=== PATIENT | female | born 1945 | race Caucasian/White ===

== ENCOUNTER 2018-05-15 13:35 | Observation (INO) | payer OTHER ==
[2018-05-15] MEDS ORDERED: NS 1,000 ML IV ONE (13:56)
--- NOTE | 2018-05-15 13:56 | EDPHY ---
H & P Stated Complaint: irregular heart beat since ~10:30am, weakness, L arm tingling resolved Time Seen by Provider: 05/15/18 13:56 HPI/ROS: HPI CHIEF COMPLAINT: Irregular heartbeat, generalized weakness, lightheadedness HISTORY OF PRESENT ILLNESS: Patient is a 73-year-old female she arrived to the emergency room by private vehicle with palpitations, lightheadedness, generalized weakness, right arm numbness and tingling that is now resolved. Patient states around 10 30 this morning she was standing there cooking and developed lightheadedness she checked her pulse and felt a irregular pulse. Denies chest pain or chest pressure denies shortness of breath. Clune very lightheaded felt like she was going to pass out. This went on for period of time, due to the symptoms she decided come the emergency room. Since arriving in emergency room she denies any complaints at this time she does states she feels tired. Patient denies any history of cardiovascular disease except history of Takosubo cardiomyopathy Past Medical History: Significant medical history for hyperlipidemia, remote history of DVT, TakoSubo cardiomyopathy Past Surgical History: No recent surgery Social History: Denies drugs alcohol tobacco. Resides in [place] part-time as well as [place] as well [facility]. Family History: ROS REVIEW OF SYSTEMS: 10 Systems were reviewed and negative with the exception of the elements mentioned in the history of present illness. Exam Constitutional appears well nontoxic triage nursing summary reviewed, vital signs reviewed, awake/alert. Eyes normal conjunctivae and sclera, EOMI, PERRLA. HENT normal inspection, atraumatic, moist mucus membranes, no epistaxis, neck supple/ no meningismus, no raccoon eyes. Respiratory clear to auscultation bilaterally, normal breath sounds, no respiratory distress, no wheezing. Cardiovascular rate normal, regular rhythm, no murmur, no edema, distal pulses normal. Gastrointestinal soft, non-tender, no rebound, no guarding, normal bowel sounds, no distension, no pulsatile mass. Genitourinary no CVA tenderness. Musculoskeletal no midline vertebral tenderness, full range of motion, no calf swelling, no tenderness of extremities, no meningismus, good pulses, neurovascularly intact. Skin pink, warm, & dry, no rash, skin atraumatic. Neurologic awake, alert and oriented x 3, AAOx3, moves all 4 extremities equally, motor intact, sensory intact, CN II-XII intact, normal cerebellar, normal vision, normal speech. Psychiatric normal mood/affect. Heme/Lymph/Immune no lymphadenopathy. Differential Diagnosis: Differential diagnosis includes but is not limited to: ACS, atypical chest pain, pneumothorax, pneumonia, pulmonary embolism, aortic dissection, congestive heart failure, tumor, musculoskeletal pain, esophageal pain, GERD, peptic ulcer disease, pancreatitis Medical Decision Making: Plan for this patient IV establishment IV fluid bolus , EKG, basic blood work, troponin, chest x-ray, and re-evaluate. Re-evaluation: EKG interpretation by me on record in [facility] system. Impression time of EKG 1354, sinus rhythm rate of 58, no signs of acute ischemia. 1735: Patient re-evaluated this time resting comfortably. Her workup here in emergency for lightheadedness, feeling she is going to pass out, palpitations rather unremarkable here in the ER. She has a nonischemic EKG. Troponin noted to be negative. Chest x-ray reviewed. Long discussion with the patient given her symptoms of lightheadedness, feeling she was going to pass out, palpitations, plan will be for admission overnight for telemetry observation. She agrees for this and prefer this plan. I did give the patient the option of repeat EKG repeat troponin and going home with Cardiology follow-up with Holter monitor however she she states she is fine staying overnight for further observation. I have consult the hospitalist service Dr. Harmon who will admit. Source: Patient - Medical/Surgical History Hx Asthma: No Hx Chronic Respiratory Disease: No Hx Diabetes: No Hx Cardiac Disease: No Hx Renal Disease: No Hx Cirrhosis: No Hx Alcoholism: No Hx HIV/AIDS: No Hx Splenectomy or Spleen Trauma: No Other PMH: hyperlipidemia - Social History Smoking Status: Never smoked Constitutional: Initial Vital Signs Temperature (C) 36.5 C 05/15/18 13:39 Heart Rate 65 05/15/18 13:39 Respiratory Rate 18 05/15/18 13:39 Blood Pressure 145/90 H 05/15/18 13:39 O2 Sat (%) 95 05/15/18 13:39 O2 Delivery Mode Room Air Allergies/Adverse Reactions: clarithromycin [From Biaxin] Allergy (Verified 05/15/18 13:39) Home Medications: Medication Instructions Recorded Atorvastatin Calcium 10 mg PO HS 05/15/18 Biotin [BIOTIN] 5 mg PO DAILY 05/15/18 Ergocalciferol (Vitamin D2) 1,200 unit PO DAILY 05/15/18 [Vitamin D2] Lactobacillus Rhamnosus GG 1 each PO DAILY 05/15/18 [CULTURELLE] Multivitamins [Multivitamin (*)] 1 each PO DAILY 05/15/18 Medical Decision Making - Diagnostics Imaging Results: Imaging Impressions Chest X-Ray 05/15/18 13:56 Impression: Chest negative for acute abnormality; query chronic airways disease. - Data Points Laboratory Results: Laboratory Results 05/15/18 14:00 05/15/18 14:00 05/15/18 05/15/18 05/15/18 14:13 14:00 14:00 WBC RBC Hgb Hct MCV MCH MCHC RDW Plt Count MPV Neut % (Auto) Lymph % (Auto) [place] % (Auto) Eos % (Auto) Baso % (Auto) Nucleat RBC Rel Count Absolute Neuts (auto) Absolute Lymphs (auto) Absolute Monos (auto) Absolute Eos (auto) Absolute Basos (auto) Absolute Nucleated RBC Immature Gran % Immature Gran # PT INR APTT Sodium 138 mEq/L mEq/L (135-145) Potassium 4.1 mEq/L mEq/L (3.5-5.2) Chloride 108 mEq/L mEq/L (97-110) Carbon Dioxide 22 mEq/l mEq/l (22-31) Anion Gap 8 mEq/L mEq/L (6-14) BUN 17 mg/dL mg/dL (7-23) Creatinine 0.9 mg/dL mg/dL (0.6-1.0) Estimated GFR > 60 Glucose 94 mg/dL mg/dL (70-100) Calcium 10.2 mg/dL mg/dL (8.5-10.4) Magnesium 1.9 mg/dL mg/dL (1.6-2.3) POC Troponin I 0.01 ng/mL ng/mL (0.00-0.08) NT-Pro-B Natriuret Pep 17 pg/mL pg/mL (0-125) TSH < 0.015 uIU/mL L uIU/mL (0.465-4.680) 05/15/18 05/15/18 14:00 14:00 WBC 6.11 10^3/uL 10^3/uL (3.80-9.50) RBC 4.60 10^6/uL 10^6/uL (4.18-5.33) Hgb 14.1 g/dL g/dL (12.6-16.3) Hct 40.9 % % (38.0-47.0) MCV 88.9 fL fL (81.5-99.8) MCH 30.7 pg pg (27.9-34.1) MCHC 34.5 g/dL g/dL (32.4-36.7) RDW 13.8 % % (11.5-15.2) Plt Count 220 10^3/uL 10^3/uL (150-400) MPV 9.8 fL fL (8.7-11.7) Neut % (Auto) 57.4 % % (39.3-74.2) Lymph % (Auto) 33.1 % % (15.0-45.0) [place] % (Auto) 7.4 % % (4.5-13.0) Eos % (Auto) 1.1 % % (0.6-7.6) Baso % (Auto) 0.8 % % (0.3-1.7) Nucleat RBC Rel Count 0.0 % % (0.0-0.2) Absolute Neuts (auto) 3.51 10^3/uL 10^3/uL (1.70-6.50) Absolute Lymphs (auto) 2.02 10^3/uL 10^3/uL (1.00-3.00) Absolute Monos (auto) 0.45 10^3/uL 10^3/uL (0.30-0.80) Absolute Eos (auto) 0.07 10^3/uL 10^3/uL (0.03-0.40) Absolute Basos (auto) 0.05 10^3/uL 10^3/uL (0.02-0.10) Absolute Nucleated RBC 0.00 10^3/uL 10^3/uL (0-0.01) Immature Gran % 0.2 % % (0.0-1.1) Immature Gran # 0.01 10^3/uL 10^3/uL (0.00-0.10) PT 13.1 SEC SEC (12.0-15.0) INR 0.97 (0.83-1.16) APTT 24.3 SEC SEC (23.0-38.0) Sodium Potassium Chloride Carbon Dioxide Anion Gap BUN Creatinine Estimated GFR Glucose Calcium Magnesium POC Troponin I NT-Pro-B Natriuret Pep TSH Medications Given: Atorvastatin Calcium (Lipitor) 10 mg PO HS BRITTANY Stop: 11/11/18 20:59 Last Admin: 05/15/18 20:58 Dose: 10 mg Discontinued Medications Sodium Chloride (Ns) 1,000 mls @ 0 mls/hr IV EDNOW ONE; Wide Open PRN Reason: Protocol Stop: 05/15/18 13:57 Last Admin: 05/15/18 14:25 Dose: 1,000 mls Point of Care Test Results: Chemistry 05/15/18 14:13 POC Troponin I 0.01 ng/mL ng/mL (0.00-0.08) Departure - Departure Disposition: [facility] Inpatient Acute Clinical Impression: Palpitations Condition: Fair
[2018-05-15 14:15] LABS: PLATELET COUNT 220 10^3/uL (150-400)
[2018-05-15 14:23] LABS: INR 0.97 (0.83-1.16); PROTIME(PATIENT) 13.1 SEC (12.0-15.0)
[2018-05-15] MEDS ORDERED: ONDANSETRON 4 MG/2 ML VIAL IVP PRN (17:35)
[2018-05-15] MEDS ORDERED: ACETAMINOPHEN 325 MG TAB PO PRN (17:35)
[2018-05-15] MEDS ORDERED: ONDANSETRON DISINTEGRATING 4 MG TAB PO PRN (17:35)
--- NOTE | 2018-05-15 19:52 | CPEKG ---
Test Reason : OPEN Blood Pressure : / mmHG Vent. Rate : 058 BPM Atrial Rate : 117 BPM P-R Int : 173 ms QRS Dur : 097 ms QT Int : 437 ms P-R-T Axes : 054 063 030 degrees QTc Int : 430 ms Sinus rhythm Atrial premature complexes Confirmed by Maxwell Somers ([id number]) on 05/15/2018 7:51:29 PM Referred By: Maxwell Somers Confirmed By:Maxwell Somers
--- NOTE | 2018-05-15 20:19 | GHP ---
[f rep st] HISTORY AND PHYSICAL DATE OF ADMISSION: 05/15/2018 CHIEF COMPLAINT: Weakness, right arm tingling. HISTORY OF PRESENT ILLNESS: A pleasant 73-year-old female with hyperlipidemia and TIA who arrived by private vehicle with palpitations, lightheadedness, generalized weakness, and right arm numbness/tingling. At 10 o'clock this morning, she was standing in kitchen cooking and felt lightheadedness. Checked her pulse and felt to be irregular. Was very faint, so layed down to avoid passing out. No LOC. At 1 p.m., symptoms persisted, so she took an aspirin and called her nurse in [place], who recommended she come to the ER. No slurred speech or focal weakness. Feels fine now. Lives half the year in [place] and half here in [place]. Arrived here May 01. Since that time, has had at least 2 similar episodes with fatigue, right hand tingling, weakness. Is very active with skiing, hiking. Hiked yesterday with no chest pain. c/o SOB with stairs which has progressed over several months. No lower extremity swelling, PND, or pillow orthopnea. Drinks 3 glasses of wine a night and 2 cups coffee daily. Has normal p.o. intake. No fevers, chills, or sweats, or other infectious symptoms. REVIEW OF SYSTEMS: I completed a 10-point review of systems and noted except HPI. PAST MEDICAL HISTORY: 5-6 "weak episodes" in the last 6 months. Hyperlipidemia. Asymptomatic migraines, TIA. PAST SURGICAL HISTORY: Peritonitis with resulting bowel resection. Ovary and fallopian tube removal. Right nephrectomy. SOCIAL HISTORY: Spends half the time here, half in [place]. She is here with her son. 2-3 glasses of wine nightly. No tobacco or illicits. FAMILY HISTORY: Mother with heart disease. HOME MEDICATIONS: Lactobacillus, multivitamin, vitamin D2, atorvastatin 10 mg q.h.s. ALLERGIES: Clarithromycin. PHYSICAL EXAMINATION: VITAL SIGNS: Temperature 36.4. Blood pressure 174/109, now 154/84. Heart rate is in the 50s and 60s. Respirations 12. 98% on room air. GENERAL: Sitting up in bed, no acute distress. Does appear fatigued. HEENT: Mildly dry mucous membranes. CV: Jared, regular. No murmurs, gallops, or rubs. LUNGS: Clear bilaterally. ABDOMEN: Soft, nontender, nondistended. Positive bowel sounds. : No Rg. MUSCULOSKELETAL: 5/5 upper and lower extremity strength. NEURO: 2-12 intact. Normal sensation to touch throughout. Normal proprioception. No pronator drift. PSYCH: Alert and oriented x3. LABS: WBC 6, hemoglobin 14, hematocrit 40, platelets 220. Coags within normal. Sodium 138, potassium 4.1, chloride 108, carbon dioxide 22, creatinine 0.9, glucose 94, magnesium 1.9. Troponin 0.01. BNP 17. TSH is pending. EKG was personally reviewed by me. Bradycardic, first-degree heart block. ST flattening in III and aVF; no old to compare. PAC. Chest x-ray personally reviewed by me: No effusion or opacity. ASSESSMENT AND PLAN: 1. Weakness: c/o of vague symptoms. Given right arm tingling, numbness , will eval for TIA with CT, echo, telemetry. PT/OT/SPL. Frequent neuro checks. Echocardiogram. EKG shows premature atrial contractions. Electrolytes within normal. Initial trop negative 2. Palpitations: EKG with premature atrial contractions. Electrolytes within normal. TSH pending. Endorses mild dyspnea with exertion. Echocardiogram to evaluate for valvular heart disease. 3. Hyperlipidemia: Statin. Diet regular. 4. Deep vein thrombosis prophylaxis: SCDs. DISPOSITION: Observation admission for CT head, echocardiogram, and telemetry. /[id number]/MODL MTDD
[2018-05-15] MEDS ORDERED: ATORVASTATIN CALCIUM 10 MG TAB PO SCH (21:00)
[2018-05-16] MEDS ORDERED: IOPAMIDOL (ISOVUE 370) 100 ML BTL IV ONE (08:52)
[2018-05-16] MEDS ORDERED: ASPIRIN 81 MG CHEWABLE TAB PO SCH (09:00)
[2018-05-16] MEDS ORDERED: LACTOBACILLUS RHAMNOSUS GG PO SCH (09:00)
[2018-05-16] MEDS ORDERED: ENOXAPARIN 40 MG/0.4 ML SYR SC SCH (09:00)
[2018-05-16] MEDS ORDERED: ERGOCALCIFEROL PO SCH (09:00)
[2018-05-16] MEDS ORDERED: MULTIVITAMINS 1 EACH TAB PO SCH (09:00)
[2018-05-16] MEDS ORDERED: Biotin [Biotin] 5 MG PO SCH (09:00)
--- NOTE | 2018-05-16 11:06 | GCON ---
[f rep st] CONSULTATION NEUROLOGIC CONSULTATION REFERRING PHYSICIAN: China Harmon MD HISTORY: The patient is a 73-year-old woman whom I am asked to see in neurologic consultation regard ing some episodes in which she feels lightheaded and might have generalized weakness and relative rig ht arm numbness. It is hard for her to say exactly how many episodes have occurred, but she would es timate perhaps 6 or 8 episodes in the last 6 or 8 months. They are fairly stereotyped in which she w ill have a global feeling, without any clear precipitating cause, of feeling weak but always perceive s relatively more numbness in the right arm than anywhere else and says it is not a tingling sensatio n, and not necessarily weak, but she definitely does not feel that it is normal at that time. She sp ecifically says it does not seem to affect the right leg or the right face, nor associated with mejia e in vision, speech, chewing or swallowing. It is not associated with headache. Often, she has palp itations, and typically, the events resolve when she sits down and rests, and within a matter of aaron eliceo, feels back to normal. Yesterday, however, the episode seemed to persist a bit longer. This led to a telephone call back to [place], where she also lives, and was advised through a physician and a nurse that she should go to the emergency department for assessment. She came to the emergency ro om for acute evaluation. Nothing specifically was identified in terms of routine labs or EKG, and he ad CT was also performed. This did not show any evidence of a mass lesion or hemorrhage or stroke. There was simply age-related atrophy. I have directly reviewed that report as well. In any case, ilia navarro has come to the cardiac unit for monitoring and has not had a recurrent episode since being [facility]. Perhaps a few months ago, she had a heart scan in [place], and it sounds as if she was told she had an elevated calcium score and was advised to go on a statin. She is not currently taking da nawaf aspirin. She does feel back to normal, now, and she thinks the total duration of the episode, yesterday, was p erhaps from 10:00 or 10:30 AM until 11:30 or noon. She also says that she has had several years of relative awareness of pain in the right shoulder and neck region, but it tends to occur when she elevates the arm, and she feels pain in the deltoid and u pper arm region, sometimes toward the neck, but does not describe a classic radicular pain shooting f rom the neck into the arm. She does not typically experience left arm numbness. REVIEW OF SYSTEMS: Otherwise, 10-point review of systems is completed and unremarkable. PAST MEDICAL HISTORY: There is a remote history of DVT. She has apparently been told of having tako tsubo cardiomyopathy. SOCIAL HISTORY: She is retired but remains fairly active. She spends part of her time in [place] as well as this area, and sometimes, in [facility] where she had visited an aunt who is recently d eceased from Alzheimer's. She has children in the area. She is not a smoker. According to the admission history and physical, she has 2-3 glasses of wine in the evening. ALLERGIES: Allergy to clarithromycin. MEDICATIONS: Currently, she is on Zofran, and prior to coming in, she was on atorvastatin 10 mg joselo y. Vitamin D, Biotin, multivitamin. PHYSICAL EXAM: VITAL SIGNS: The blood pressure is 121/64, pulse of 52, respirations 12, temperature 36.8. GENERAL: She is well developed, lying in the bed in no acute distress. NECK: Supple with n o bruits or masses. No supraclavicular bruits. She has a little bit of pain around the right elbow and upper arm when she lifts the arm or I move it up. There are no palpable masses or particular sen sitivity to touch in the region. CARDIAC: Regular rate and rhythm. No murmur. NEUROLOGIC: She is alert and attentive with clear, fluent speech and normal cognition. Pupils are 2 mm and reactive. Extraocular movements are intact. Normal facial sensation and strength. Hearing is preserved. The motor exam reveals normal muscle bulk and tone with 5/5 strength except for some pain when she resist s in the right arm at the proximal region. She says there is a little perception of stiffness in the right hand compared to the left but nothing else more specific. Sensation is symmetric for temperat ure and light touch in the extremities, and no ataxia on [id number]. Reflexes are 1+ and symmetr ic. No Babinski sign. LABORATORY STUDIES: Normal white count, INR and unremarkable serum chemistries with an LDL cholester ol at 66. IMPRESSION: Total unit time of 55 minutes. The patient is having some rather stereotyped episodes, over the last 8 months, for which I do not have a definitive explanation. It is concerning that she has had relative involvement of the right arm in terms of a numb perception, but it is not clearly a transient ischemic attack. This is a differential consideration, however. It begins more as a gener alized reaction where she feels either palpitations or other nonspecific global weakness that then la sts only a few minutes and resolves. On one occasion, she had diffuse sweating and broke out into a severe generalized sweat suggesting a generalized sympathetic surge, but again, of unknown source. I t is possible, mechanistically, for her to have cardiac arrhythmia followed by relative hypoperfusion , and stenotic vessels could lead to neurologic symptoms that have some focality. Therefore, my plan will be to obtain CT angiogram of the head and neck. I am recommending daily aspirin. I would cont inue the statin for now. I agree with the echocardiogram. She should have cardiac monitoring until such time that one of these episodes is captured. This does not need to be inpatient, but she can espino ve a 30-day event monitor, or perhaps a longer monitor if necessary, to try and be sure we capture th e source of these feelings of palpitations and events and make sure they are not linked to a cardiac rhythm disturbance. She is comfortable with this plan. I told her she can follow up with me as an o utpatient if she chooses. She does travel between [facility] and [place] fairly commonly, and she is als o seeking out getting more medical care, perhaps in this area, as well. With a history of a positive cardiac calcium score, that can be followed up through her cooler deliverer and regular physician but fu rther suggests the importance of looking at the cerebral vasculature as well, which we will do. /[id number]/MODL
[2018-05-16 15:07] VITALS: BP 129/71
--- NOTE | 2018-05-16 16:07 | ASMTLACE ---
LACE Length of stay for Answers: Less than 1 day current admission Acuity / Level of Answers: No Care: Did the patient have an inpatient admission? Comorbidities - select Answers: Any tumor (including all that apply lymphoma or leukemia) Other Notes: HLD; DVT # of Emergency department Answers: 1-2 visits in the last 6 months Score: 4 Date Signed: 05/16/2018 04:06 PM Electronically Signed By:Amisha Bliss RN
--- NOTE | 2018-05-16 16:09 | ASMTDCNOTE ---
Case Management Discharge Discharge Order Complete? Answers: Yes Patient to Obtain Answers: Independently Medications Transportation Arranged Answers: Family/Friends Discharge Comments Notes: 05/16/2018 Case Management Note pt resides in [place]. PRCP is Dr. Zambrano at [facility] [phone]. Pt has an appointment with Dr. Zambrano on 05/25/2017. Pt is visiting her son in [place] with plans to return to [place] on . Case Management d/c poc: independent with follow up as directed. Date Signed: 05/16/2018 04:09 PM Electronically Signed By:Amisha Bliss RN
--- NOTE | 2018-05-16 16:10 | ASDISCHSUM ---
Discharge Information Plan Status:Home with No Needs Medically Cleared to Leave:05/15/2018 Discharge Date:05/15/2018 CM D/C Disposition:Home, Routine, Self-Care ADT D/C Disposition:Home, Routine, Self-Care Projected Discharge Date:05/15/2018 Transportation at D/C:Self Discharge Delay Reason: Follow-Up Date:05/15/2018 Discharge Slot: Final Diagnosis: Placement Information Patient Contact Information Contact Name:HANNAH Relationship:Josh Address: Work Phone: City: [facility] Phone: State/[employer] Code: Email: Financial Information Financial Class:Medicare Primary Plan Desc:MEDICARE OUTPATIENT Primary Plan Number:[id number] Secondary Plan Desc:[facility] PLANS Secondary Plan Number:[id number] Assessment Information LACE LACE Length of stay for Answers: Less than 1 day current admission Acuity / Level of Answers: No Care: Did the patient have an inpatient admission? Comorbidities - select Answers: Any tumor (including all that apply lymphoma or leukemia) Other Notes: HLD; DVT # of Emergency department Answers: 1-2 visits in the last 6 months Score: 4 Date Signed: 05/16/2018 04:06 PM Electronically Signed By:Amisha Bliss RN Case Management Discharge Plan Note Case Management Discharge Discharge Order Complete? Answers: Yes Patient to Obtain Answers: Independently Medications Transportation Arranged Answers: Family/Friends Discharge Comments Notes: 05/16/2018 Case Management Note [place]. BEULAHP is Dr. Zambrano at [facility] [phone]. Pt has an appointment with Dr. Zambrano on 05/25/2017. Pt is visiting her son in [place] with plans to return to [place] on . Case Management d/c poc: independent with follow up as directed. Date Signed: 05/16/2018 04:09 PM Electronically Signed By:Amisha Bliss RN Intervention Information Intervention Type:*WONG-Signed Date of Service:05/16/2018 10:29 AM Patient Type:Observation Staff Member:Sophia Aiken Hours: Discipline: Severity: Comment:
--- NOTE | 2018-05-16 16:32 | ECHO ---
[email or web address] [address] [address] Main: [phone] Fax: Transthoracic Echocardiogram Name: JAYLENE MADDOX MR#: [id number] Study Date: 05/16/2018 Study Time: 09:43 AM Date of : 1945 Age: 73 year(s) Height: 165.1 cm (65 in.) Weight: 53.98 kg (119 lb.) BSA: 1.59 m2 Gender: Female Examination: Echo Indication: Cardiac: dyspnea, Near Syncope Image Quality: Contrast: Requested by: China Harmon BP: 121 mmHg/64 mmHg Heart Rate: Rhythm: Normal sinus rhythm Indication: Cardiac: dyspnea, Near Syncope Procedure Staff Rn Internship: Juan Jose Damon RDCS Reading Physician: Rowdy Stephenson MD Requesting Provider: Conclusions: Normal size left ventricle. EF is 76 %. No regional wall motion abnormality. Normal diastolic LV function. Normal appearing valvular structures. Trivial mitral valve regurgitation. Trivial tricuspid valve regurgitation. The pulmonary artery pressure is normal. Small pericardial effusion. No echocardiographic evidence of hemodynamic compromise. No priuor study for comparison. Measurements: Chambers Valvular Assessment AV/MV Valvular Assessment TV/PV Normal Normal Normal Name Value Range Name Value Range Name Value Range Ao Melinda (MM): 2.9 cm (2.2 cm-3.7 AV Vmax: 1.26 m/s (1 m/s-1.7 TR Vmax: 2.36 mm/s ( - ) cm) m/s) TR PGmax: 22 mmHg ( - ) IVSd (2D): 0.8 cm (0.6 cm-1.1 AV maxP mmHg ( - ) syst. PAP: 27 mmHg ( - ) cm) LVOT Vmax: 1.11 m/s (0.7 m/s-1.1 PV Vmax: 0.77 m/s (0.6 m/s-0.9 LVDd (2D): 4.3 cm (3.9 cm-5.3 m/s) m/s) cm) MV E Vmax: 0.71 m/s ( - ) PV PGmax: 2 mmHg ( - ) LVDs (2D): 2.4 cm (2.1 cm-4 MV A Vmax: 0.49 m/s ( - ) cm) MV E/A: 1.45 ( - ) LVPWd (2D): 0.9 cm ( - ) LVEF (2D): 76 (>=54 %) Continued Measurements: Chambers Valvular Assessment AV/MV Valvular Assessment TV/PV Patient: JAYLENE MADDOX Study Date: 05/16/2018 Page 1 of 2 09:43 AM Name Value Name Value Name Value LADs: 2.6 cm MV E' Septal: 0.08 m/s CVP (est.): 5 mmHg LADs Lon.2 cm MV E/E' Septal: 9.10 LA Area: 12.1 cm2 MV E/E' Lateral: 6.10 LA Volume: 29 ml LA Volume Index: 18.2 ml/m2 TAPSE: 2.2 cm Findings: Left Ventricle: Normal size left ventricle. No LV hypertrophy. Normal global systolic LV function. EF is 76 %. No regional wall motion abnormality. Normal diastolic LV function. Right Ventricle: Normal size right ventricle. Normal RV function. Left Atrium: The left atrium is normal in size. Right Atrium: The right atrium is normal in size. Mitral Valve: The mitral valve is normal in appearance. Trivial mitral valve regurgitation. Aortic Valve: The aortic valve is tri-leaflet. The aortic valve is normal in appearance. No aortic valve stenosis is present. There is no significant aortic valve regurgitation. Tricuspid Valve: The tricuspid valve appears normal. Trivial tricuspid valve regurgitation. The pulmonary artery pressure is normal. Pulmonic Valve: The pulmonic valve is normal in appearance. Trivial pulmonic valve regurgitation. Aorta: The aorta is normal. Pericardium: Small pericardial effusion. No echocardiographic evidence of hemodynamic compromise. (No Signature Object) Patient: JAYLENE MADDOX Study Date: 05/16/2018 Page 2 of 2 09:43 AM [id number]
--- NOTE | 2018-05-16 18:19 | PDDCSUM ---
Discharge Summary Discharge Summary: Discharge diagnosis Pre Syncope Hyperlipidemia Patient is a 73-year-old female fairly healthy with past medical history of hyperlipidemia presented with generalized weakness and right arm numbness. Episodes have been ongoing for approximately the last 6-8 months. Patient was admitted to telemetry. CT head was normal. Neurology was consulted who recommended CTA head and neck both of which were normal. Echocardiogram was obtained which showed a normal LVEF. She was monitored on telemetry and had no events during this admission noted on telemetry. Neurology felt that this did not represent CVA or a TIA and recommended starting on an aspirin, keeping her LDL below 70, and following up outpatient for placement of a traffic monitor specialist for further evaluation of any cardiac arrhythmias. I discussed the case with her primary care physician back in [place] and discussed the need for her to have a traffic monitor specialist placed. The patient was discharged in good condition and understood the plan moving forward. Disposition Home independent Follow-up PCP in [place]
== END 2018-05-16 17:27 | disposition home or self-care (01) ==
LOC: F2W 18:18
PROVIDERS: ADMIT Internal Medicine; ATTEND Internal Medicine
DX: R55 Syncope and collapse (principal); R00.2 Palpitations; E86.9 Volume depletion, unspecified; R29.90 Unspecified symptoms and signs involving the nervous system; E78.5 Hyperlipidemia, unspecified; R29.700 NIHSS score 0; I51.81 Takotsubo syndrome; Z86.718 Personal history of other venous thrombosis and embolism; Z90.5 Acquired absence of kidney
CPT/HCPCS: 70450; 70496; 70498; 71045; 92523; 93005; 93306; 99285; G0378; Q9967; 84484-ER